=== PATIENT | female | born 1950 | race Caucasian/White ===

== ENCOUNTER 2019-02-24 08:08 | Emergency (ER) | payer MEDICARE, MEDICAID ==
[~2019-02-24] VITALS: Ht 170.2 cm; Wt 83.0 kg
[~2019-02-24 08:08] MED LIST: CARV3 PO; CHOL200059 PO; FAMO20 PO
[2019-02-24] MEDS ORDERED: ACETAMINOPHEN 500 MG TABLET PO ONE (08:30)
[2019-02-24] MEDS ORDERED: LIDOCAINE 5% TRANSDERMAL PATCH TD ONE (09:30)
[2019-02-24] MEDS ORDERED: IBUPROFEN 600 MG TABLET PO ONE (09:30)
[2019-02-24 09:45] LABS: GLUCOSE,POINT OF CARE 132 MG/DL (70-110)
[2019-02-24 10:13] VITALS: BP 123/63
== END 2019-02-24 10:35 | disposition home or self-care (01) ==
LOC: EMS 08:09
DX: M48.061 Spinal stenosis, lumbar region without neurogenic claudication (principal); I11.9 Hypertensive heart disease without heart failure; I25.10 Atherosclerotic heart disease of native coronary artery without angina pectoris; E11.9 Type 2 diabetes mellitus without complications; E78.00 Pure hypercholesterolemia, unspecified; I10 Essential (primary) hypertension; Z79.899 Other long term (current) drug therapy

== ENCOUNTER 2019-03-16 07:52 | Inpatient (IN) | payer MEDICARE, MEDICAID ==
[~2019-03-16] VITALS: Ht 157.5 cm; Wt 69.2 kg
[2019-03-16] MEDS ORDERED: FERR-89 PO (08:17)
[2019-03-16 09:29] LABS: BASOPHILS % (AUTO) 0.6 % (0.0-2.0); EOSINOPHILS % (AUTO) 0.4 % (1.0-6.0); HEMATOCRIT 28.3 % (36-46); HEMOGLOBIN 8.9 g/dL (12.0-16.0); LYMPHOCYTES # (AUTO) 1.1 K/uL (1.0-4.8); LYMPHOCYTES % (AUTO) 10.2 % (22.0-44.0); MEAN CORPUSCULAR HEMOGLOBIN 30.4 pg (26.0-34.0); MEAN CORPUSCULAR HGB CONC 31.4 G/dL (31.0-37.0); MEAN CORPUSCULAR VOLUME 97 fL (80-100); MONOCYTES % (AUTO) 9.8 % (2.0-9.0); NEUTROPHILS # (AUTO) 8.2 K/uL (1.8-7.7); PLATELET COUNT (AUTO) 357 K/uL (150-450); RED BLOOD CELL COUNT(AUTO) 2.93 MIL/uL (4.00-5.20); RED CELL DISTRIBUTION WIDTH 16.8 % (11.5-14.5)
[2019-03-16 09:43] LABS: ALBUMIN 2.8 g/dL (3.4-5.0); BILIRUBIN,TOTAL 0.4 mg/dL (0.1-1.0); CALCIUM, TOTAL 9.2 mg/dL (8.8-10.5); CREATININE 4.9 mg/dL (0.60-1.30); POTASSIUM 4.2 mmol/L (3.5-5.1)
[2019-03-16] MEDS ORDERED: SODIUM CHLORIDE 0.9% 1,000 ML IV ONE ×2 (10:15)
[2019-03-16 10:21] LABS: SOURCE, BLOOD GAS ARTERIAL; TEMPERATURE, FAHRENHEIT, BG 97.6 FAHREN (96.0-98.6)
[2019-03-16 10:24] LABS: ABG A-A DIFF O2 16.4 mmHg (10-20.0); ABG BASE EXCESS -21.6 mmol/L (-2.0-3.0); ABG CARBOXYHEMOGLOBIN 0.4 % (0.0-1.5); ABG METHEMOGLOBIN 0.2 % (0.0-1.5); ABG OXYGEN CONTENT 12.8 mL/dL (15.0-23.0); ABG OXYHEMOGLOBIN 96.4 % (94.0-100.0); ABG PCO2 21 mmHg (35-45); ABG TOTAL HEMOGLOBIN 9.3 G/dL (12.0-18.0); PO2, ARTERIAL BG 108.2 mmHg (79.0-87.0)
[2019-03-16 10:28] LABS: ABG PH 7.153 (7.35-7.450)
[2019-03-16 10:29] LABS: ABG HCO3 9.5 mmol/L (22.0-26.0)
[2019-03-16 10:30] LABS: SITE, BLOOD GAS RT RADIAL
[2019-03-16] MEDS ORDERED: HEPARIN SODIUM 25000 UNITS/D5W 250 ML IV PRN (10:32)
[2019-03-16 10:34] LABS: O2 DEVICE,BLOOD GAS ROOM AIR (ROOM AIR)
[2019-03-16] MEDS ORDERED: CefTRIAXone 1 GM/DEXTROSE 50 ML IV ONE (10:45)
[2019-03-16] MEDS ORDERED: HEPARIN SODIUM,PORCINE 5,000 UNITS/ML VIAL IVP ONE (10:45)
[2019-03-16] MEDS ORDERED: VANCOMYCIN HCL 1 GM/D5% WATER 200 ML IV ONE (10:45)
[2019-03-16] MEDS ORDERED: HEPARIN SODIUM,PORCINE 5,000 UNITS/ML VIAL IVP PRN ×4 (10:45→21:30)
[2019-03-16 11:03] LABS: PROTHROMBIN TIME 10.6 SEC (9.4-11.6)
[2019-03-16] MEDS ORDERED: LORazepam 2 MG/ML VIAL ONE (11:20)
[2019-03-16] MEDS ORDERED: LORazepam 2 MG/ML VIAL IVP ONE ×2 (11:30→11:45)
[2019-03-16] MEDS ORDERED: MIDAZOLAM HCL 2 MG/2 ML VIAL ONE (12:02)
[2019-03-16] MEDS ORDERED: SODIUM BICARBONATE [ADULT] 8.4% 50 MEQ/50 ML SYRINGE IVP ONE (12:30)
[2019-03-16] MEDS ORDERED: ONDANSETRON HCL 4 MG/2 ML VIAL IVP PRN ×2 (12:45→21:00)
[2019-03-16] MEDS ORDERED: ACETAMINOPHEN 325 MG TABLET PO PRN (12:45)
[2019-03-16] MEDS ORDERED: ASPIRIN 325 MG TABLET PO ONE (13:45)
[2019-03-16] MEDS ORDERED: SODIUM BICARBONATE 150 MEQ in DEXTROSE 5%-WATER 1,000 ML IV SCH (13:45)
[2019-03-16 15:32] LABS: CALCIUM, TOTAL 8.4 mg/dL (8.8-10.5); CREATININE 4.39 mg/dL (0.60-1.30); POTASSIUM 3.4 mmol/L (3.5-5.1)
[2019-03-16 15:38] LABS: ALBUMIN 2.2 g/dL (3.4-5.0); BILIRUBIN,TOTAL 0.3 mg/dL (0.1-1.0); TOTAL PROTEIN, SERUM 6.5 g/dL (6.4-8.2)
[2019-03-16] MEDS ORDERED: HEPARIN SODIUM,PORCINE 1,000 UNITS/ML VIAL IVP ONE (16:40)
[2019-03-16] MEDS ORDERED: ZOLPIDEM TARTRATE 5 MG TABLET PO PRN (21:00)
[2019-03-16] MEDS ORDERED: MAGNESIUM HYDROXIDE SUSPENSION 30 ML UDCUP PO PRN (21:00)
[2019-03-16] MEDS ORDERED: BISACODYL 10 MG RECTAL RECTAL SUPPOSITORY PR PRN (21:00)
[2019-03-16] MEDS: DOCUSATE SODIUM 100 MG CAPSULE PO SCH (21:00)
[2019-03-16] MEDS ORDERED: ALBUTEROL SULFATE 2.5 MG/0.5 ML NEB SOLUTION NEB PRN (21:00)
[2019-03-16] MEDS ORDERED: IPRATROPIUM BROMIDE 0.5 MG/2.5 ML NEB SOLUTION NEB PRN (21:00)
[2019-03-16 21:15] VITALS: BP 123/50
[2019-03-16] MEDS ORDERED: PNEUMOCOCCAL VACCINE POLYVALENT 0.5 ML VIAL [PPSV23] IM ONE (22:30)
[2019-03-16 22:45] LABS: ABG A-A DIFF O2 37.5 mmHg (10-20.0); ABG BASE EXCESS -8.7 mmol/L (-2.0-3.0); ABG CARBOXYHEMOGLOBIN 1.1 % (0.0-1.5); ABG METHEMOGLOBIN 0.2 % (0.0-1.5); ABG OXYGEN CONTENT 10.3 mL/dL (15.0-23.0); ABG OXYGEN SATURATION 95.9 % (95.0-98.0); ABG OXYHEMOGLOBIN 94.7 % (94.0-100.0); ABG PCO2 27 mmHg (35-45); ABG PH 7.401 (7.35-7.450); PO2, ARTERIAL BG 80.6 mmHg (79.0-87.0); SOURCE, BLOOD GAS ARTERIAL; TEMPERATURE, FAHRENHEIT, BG 97.7 FAHREN (96.0-98.6)
[2019-03-16 22:46] LABS: ABG TOTAL HEMOGLOBIN 7.6 G/dL (12.0-18.0); O2 DEVICE,BLOOD GAS ROOM AIR (ROOM AIR); SITE, BLOOD GAS RT RADIAL
[2019-03-16] MEDS: MORPHINE SULFATE 2 MG/ML SYRINGE IVP PRN (23:53)
[2019-03-17] VITALS (9 sets, daily range): BP systolic 92–126; BP diastolic 50–69
[2019-03-17] MEDS ORDERED: HEPARIN SODIUM,PORCINE 5,000 UNITS/ML VIAL SQ SCH
[2019-03-17 00:09] LABS: INR 1.1 (0.9-1.1); PROTHROMBIN TIME 11.2 SEC (9.4-11.6)
[2019-03-17] MEDS: HEPARIN SODIUM 25000 UNITS/D5W 250 ML IV PRN (05:22)
[2019-03-17 06:24] LABS: BASOPHILS % (AUTO) 0.7 % (0.0-2.0); EOSINOPHILS % (AUTO) 3.3 % (1.0-6.0); HEMATOCRIT 21.9 % (36-46); LYMPHOCYTES # (AUTO) 1.5 K/uL (1.0-4.8); MEAN CORPUSCULAR HEMOGLOBIN 30.2 pg (26.0-34.0); MEAN CORPUSCULAR HGB CONC 31.9 G/dL (31.0-37.0); MEAN CORPUSCULAR VOLUME 95 fL (80-100); MONOCYTES # (AUTO) 0.8 K/uL (0.1-1.0); MONOCYTES % (AUTO) 9.7 % (2.0-9.0); NEUTROPHILS # (AUTO) 5.4 K/uL (1.8-7.7); NEUTROPHILS % (AUTO) 67.3 % (40.0-70.0); PLATELET COUNT (AUTO) 236 K/uL (150-450); RED BLOOD CELL COUNT(AUTO) 2.32 MIL/uL (4.00-5.20); RED CELL DISTRIBUTION WIDTH 16.1 % (11.5-14.5)
[2019-03-17 07:08] LABS: ALBUMIN 2.1 g/dL (3.4-5.0); BILIRUBIN,TOTAL 0.4 mg/dL (0.1-1.0); CALCIUM, TOTAL 8.4 mg/dL (8.8-10.5); CREATININE 2.8 mg/dL (0.60-1.30); TOTAL PROTEIN, SERUM 6.3 g/dL (6.4-8.2)
[2019-03-17 07:11] LABS: POTASSIUM 2.8 mmol/L (3.5-5.1)
[2019-03-17] MEDS ORDERED: POTASSIUM CHL 10 MEQ/WATER 50 ML IV ONE ×2 (07:45→10:30)
[2019-03-17 08:07] LABS: APPEARANCE,URINE TURBID (CLEAR); BILIRUBIN,URINE NEGATIVE (NEGATIVE); GLUCOSE, URINE (UA) NEGATIVE (NEGATIVE); KETONES,URINE 15 mg/dL (NEGATIVE); LEUKOCYTE ESTERASE ,URINE LARGE (NEGATIVE); NITRATE,URINE NEGATIVE (NEGATIVE); OCCULT BLOOD,URINE LARGE (NEGATIVE); PH,URINE 8.5 (5.0-8.0); PROTEIN,URINE SEE CONFIRM (NEGATIVE); UROBILINOGEN,URINE 0.2 mg/dL (<=1.0)
[2019-03-17] MEDS ORDERED: SODIUM CHLORIDE 0.9% 500 ML IV ONE (08:16)
[2019-03-17 08:36] LABS: RBC,URINE Full Field /HPF (0-2); SULFOSALICYLIC ACID,URINE 4+ (Negative); WBC,URINE Full Field /HPF (0-5)
[2019-03-17 08:37] LABS: BACTERIA,URINE Many /HPF (None Seen)
[2019-03-17] MEDS: DOCUSATE SODIUM 100 MG CAPSULE PO SCH ×2 (09:00→20:08)
[2019-03-17] MEDS: FAMOTIDINE 20 MG TABLET PO SCH (09:00)
[2019-03-17] MEDS: CefTRIAXone 1 GM/DEXTROSE 50 ML IV SCH (11:57)
[2019-03-17] MEDS: ATORVASTATIN CALCIUM 10 MG TABLET PO SCH (13:15)
[2019-03-17] MEDS: ASPIRIN 81 MG EC TABLET PO SCH (13:15)
[2019-03-17] MEDS: MORPHINE SULFATE 2 MG/ML SYRINGE IVP PRN ×3 (13:17→20:21)
[2019-03-17] MEDS ORDERED: HEPARIN SODIUM,PORCINE 1,000 UNITS/ML VIAL IVP ONE (15:23)
[2019-03-17] MEDS: PHENAZOPYRIDINE HCL 100 MG TABLET PO SCH (20:08)
[2019-03-17] MEDS: CARVEDILOL 3.125 MG TABLET PO SCH (20:08)
[2019-03-17] MEDS ORDERED: SODIUM CHLORIDE 0.9% 250 ML IV ONE (22:28)
[2019-03-17] MEDS: HYDROCODONE/ACETAMINOPHEN 5-325 MG TABLET PO PRN (23:19)
[2019-03-18] VITALS (16 sets, daily range): BP systolic 84–126; BP diastolic 41–85
[2019-03-18] MEDS ORDERED: PHENYLEPHRINE 200 MG/D5%-WATER 250 ML IV PRN ×2 (01:08→01:10)
[2019-03-18] MEDS: HEPARIN SODIUM 25000 UNITS/D5W 250 ML IV PRN (03:14)
[2019-03-18 05:19] LABS: BASOPHILS % (AUTO) 0.9 % (0.0-2.0); EOSINOPHILS % (AUTO) 2.8 % (1.0-6.0); HEMATOCRIT 21.6 % (36-46); LYMPHOCYTES # (AUTO) 2.7 K/uL (1.0-4.8); MEAN CORPUSCULAR HEMOGLOBIN 30.2 pg (26.0-34.0); MEAN CORPUSCULAR HGB CONC 31.8 G/dL (31.0-37.0); MEAN CORPUSCULAR VOLUME 95 fL (80-100); MONOCYTES # (AUTO) 1.3 K/uL (0.1-1.0); MONOCYTES % (AUTO) 11.6 % (2.0-9.0); NEUTROPHILS # (AUTO) 6.5 K/uL (1.8-7.7); NEUTROPHILS % (AUTO) 59.7 % (40.0-70.0); PLATELET COUNT (AUTO) 259 K/uL (150-450); RED BLOOD CELL COUNT(AUTO) 2.27 MIL/uL (4.00-5.20); RED CELL DISTRIBUTION WIDTH 16.3 % (11.5-14.5)
[2019-03-18 05:27] LABS: % IRON SATURATION 8.1 % (22-44)
[2019-03-18 05:46] LABS: BILIRUBIN,TOTAL 0.3 mg/dL (0.1-1.0); CALCIUM, TOTAL 7.9 mg/dL (8.8-10.5); CREATININE 2.01 mg/dL (0.60-1.30); HEMOGLOBIN 6.9 g/dL (12.0-16.0); MAGNESIUM 1.5 mg/dL (1.80-2.40); POTASSIUM 3.4 mmol/L (3.5-5.1); TOTAL PROTEIN, SERUM 6.2 g/dL (6.4-8.2)
[2019-03-18] MEDS ORDERED: MAGNESIUM SULFATE 4 GM/WATER 100 ML IV ONE (08:30)
[2019-03-18] MEDS ORDERED: POTASSIUM CHLORIDE 10% 40 MEQ/30 ML LIQUID UDCUP PO ONE (08:30)
[2019-03-18] MEDS: CARVEDILOL 3.125 MG TABLET PO SCH ×2 (09:00→21:00)
[2019-03-18] MEDS: DOCUSATE SODIUM 100 MG CAPSULE PO SCH ×2 (09:17→19:58)
[2019-03-18] MEDS: ASPIRIN 81 MG EC TABLET PO SCH (09:17)
[2019-03-18] MEDS: FAMOTIDINE 20 MG TABLET PO SCH (09:19)
[2019-03-18] MEDS: ATORVASTATIN CALCIUM 10 MG TABLET PO SCH (09:29)
[2019-03-18] MEDS: PHENAZOPYRIDINE HCL 100 MG TABLET PO SCH ×3 (09:29→19:58)
[2019-03-18] MEDS: CefTRIAXone 1 GM/DEXTROSE 50 ML IV SCH (09:32)
[2019-03-18] MEDS ORDERED: SODIUM CHLORIDE 0.9% 250 ML IV ONE (11:12)
[2019-03-18] MEDS: MORPHINE SULFATE 2 MG/ML SYRINGE IVP PRN (19:58)
[2019-03-19] VITALS (7 sets, daily range): BP systolic 99–130; BP diastolic 16–70
[2019-03-19 05:27] LABS: CALCIUM, TOTAL 8.3 mg/dL (8.8-10.5); CREATININE 2.86 mg/dL (0.60-1.30); MAGNESIUM 2.8 mg/dL (1.80-2.40); POTASSIUM 3.4 mmol/L (3.5-5.1)
[2019-03-19] MEDS: ATORVASTATIN CALCIUM 10 MG TABLET PO SCH (08:08)
[2019-03-19] MEDS: PHENAZOPYRIDINE HCL 100 MG TABLET PO SCH ×2 (08:08→16:00)
[2019-03-19] MEDS: DOCUSATE SODIUM 100 MG CAPSULE PO SCH ×2 (08:08→21:00)
[2019-03-19] MEDS: ASPIRIN 81 MG EC TABLET PO SCH (08:08)
[2019-03-19] MEDS: FAMOTIDINE 20 MG TABLET PO SCH (08:08)
[2019-03-19 09:18] LABS: HEMATOCRIT 27.9 % (36-46); HEMOGLOBIN 8.9 g/dL (12.0-16.0)
[2019-03-19] MEDS ORDERED: HEPARIN SODIUM,PORCINE 1,000 UNITS/ML VIAL IVP ONE (12:00)
[2019-03-19] MEDS ORDERED: SODIUM CHLORIDE 0.9% 250 ML IV ONE (18:30)
[2019-03-19] MEDS: CefoTEtan DISOD 1 GM/DEXTROSE 50 ML IV SCH (19:01)
[2019-03-19] MEDS: CARVEDILOL 3.125 MG TABLET PO SCH (21:00)
[2019-03-20] VITALS (18 sets, daily range): BP systolic 78–179; BP diastolic 39–88
[2019-03-20] MEDS: CefoTEtan DISOD 1 GM/DEXTROSE 50 ML IV SCH ×2 (02:02→18:52)
[2019-03-20 06:32] LABS: CALCIUM, TOTAL 8.2 mg/dL (8.8-10.5); CREATININE 3.11 mg/dL (0.60-1.30); POTASSIUM 3.2 mmol/L (3.5-5.1)
[2019-03-20 06:38] LABS: BASOPHILS % (AUTO) 0.4 % (0.0-2.0); EOSINOPHILS % (AUTO) 3.4 % (1.0-6.0); HEMATOCRIT 28.5 % (36-46); HEMOGLOBIN 8.7 g/dL (12.0-16.0); LYMPHOCYTES # (AUTO) 1.7 K/uL (1.0-4.8); LYMPHOCYTES % (AUTO) 14.3 % (22.0-44.0); MEAN CORPUSCULAR HEMOGLOBIN 29.1 pg (26.0-34.0); MEAN CORPUSCULAR HGB CONC 30.5 G/dL (31.0-37.0); MEAN CORPUSCULAR VOLUME 95 fL (80-100); MONOCYTES # (AUTO) 1.1 K/uL (0.1-1.0); MONOCYTES % (AUTO) 8.8 % (2.0-9.0); NEUTROPHILS # (AUTO) 8.9 K/uL (1.8-7.7); NEUTROPHILS % (AUTO) 73.1 % (40.0-70.0); PLATELET COUNT (AUTO) 166 K/uL (150-450); RED BLOOD CELL COUNT(AUTO) 2.99 MIL/uL (4.00-5.20); RED CELL DISTRIBUTION WIDTH 16.6 % (11.5-14.5)
[2019-03-20 07:06] LABS: INR 1.1 (0.9-1.1)
[2019-03-20] MEDS ORDERED: HEPARIN SODIUM 1000 UNITS/NS 500 ML ONE ×2 (08:12→08:26)
[2019-03-20] MEDS ORDERED: LIDOCAINE 1%/EPI 1:200,000/PF 10 ML VIAL ONE (08:13)
[2019-03-20] MEDS ORDERED: HEPARIN SODIUM,PORCINE 100 UNITS/ML 5 ML VIAL IVP ONE ×2 (08:13→08:14)
[2019-03-20] MEDS ORDERED: HEPARIN SODIUM,PORCINE 1,000 UNITS/ML 10 ML VIAL ONE (08:14)
[2019-03-20] MEDS ORDERED: HEPARIN SODIUM 1000 UNITS/NS 1,000 ML ONE (08:35)
[2019-03-20] MEDS ORDERED: IOHEXOL 300 MG/ML 150 ML VIAL ONE (08:35)
[2019-03-20] MEDS ORDERED: SODIUM BICARBONATE 50 MEQ/50 ML VIAL ONE (08:35)
[2019-03-20] MEDS ORDERED: LIDOCAINE/PF 1% 30 ML VIAL ONE (08:35)
[2019-03-20] MEDS: ATORVASTATIN CALCIUM 10 MG TABLET PO SCH (09:00)
[2019-03-20] MEDS: CARVEDILOL 3.125 MG TABLET PO SCH ×2 (09:00→20:29)
[2019-03-20] MEDS: DOCUSATE SODIUM 100 MG CAPSULE PO SCH ×2 (09:00→20:29)
[2019-03-20] MEDS: ASPIRIN 81 MG EC TABLET PO SCH (09:00)
[2019-03-20] MEDS: FAMOTIDINE 20 MG TABLET PO SCH (09:00)
[2019-03-20] MEDS ORDERED: NITROGLYCERIN 50 MG/D5% WATER 0 ML ONE (10:39)
[2019-03-20] MEDS ORDERED: VERAPAMIL HCL 2.5 MG/ML 2 ML VIAL ONE (10:39)
[2019-03-20] MEDS ORDERED: HEPARIN SODIUM 1000 UNITS/NS 1,000 ML IARTER ONE (10:57)
[2019-03-20] MEDS ORDERED: IOHEXOL 300 MG/ML 150 ML VIAL IARTER ONE (11:00)
[2019-03-20] MEDS ORDERED: HEPARIN SODIUM,PORCINE 5,000 UNITS/ML VIAL IVP ONE (11:00)
[2019-03-20] MEDS ORDERED: LIDOCAINE 1% 30 ML/SOD BICARB 8.4% 4 ML SQ ONE (11:00)
[2019-03-20] MEDS ORDERED: IOHEXOL 300 MG/ML 50 ML VIAL ONE (11:11)
[2019-03-20] MEDS ORDERED: PHENYLEPHRINE HCL 10 MG/ML VIAL IVP ONE (12:00)
[2019-03-20] MEDS ORDERED: 0.9% SODIUM CHLORIDE 10 ML VIAL IVP ONE (12:00)
[2019-03-20] MEDS ORDERED: HEPARIN SODIUM,PORCINE 1,000 UNITS/ML VIAL IVP ONE ×2 (12:00)
[2019-03-20] MEDS ORDERED: SUCCINYLCHOLINE CHLORIDE 20 MG/ML 10 ML VIAL IVP ONE (12:00)
[2019-03-20] MEDS ORDERED: FentaNYL CITRATE-PF 100 MCG/2 ML VIAL IVP ONE (12:00)
[2019-03-20] MEDS ORDERED: LIDOCAINE/PF 2% 5 ML VIAL INJ ONE (12:00)
[2019-03-20] MEDS ORDERED: SODIUM CHLORIDE 0.9% 2,000 ML IV ONE (12:58)
[2019-03-20] MEDS: ACETAMINOPHEN 325 MG TABLET PO PRN (20:29)
[2019-03-21] VITALS (11 sets, daily range): BP systolic 63–116; BP diastolic 35–62
[2019-03-21] MEDS ORDERED: SODIUM CHLORIDE 0.9% 500 ML IV ONE ×5 (00:03→23:59)
[2019-03-21 06:50] LABS: BASOPHILS % (AUTO) 0.5 % (0.0-2.0); EOSINOPHILS % (AUTO) 1.9 % (1.0-6.0); HEMATOCRIT 26.1 % (36-46); HEMOGLOBIN 8.1 g/dL (12.0-16.0); LYMPHOCYTES % (AUTO) 11.4 % (22.0-44.0); MEAN CORPUSCULAR HEMOGLOBIN 29.7 pg (26.0-34.0); MEAN CORPUSCULAR HGB CONC 31.2 G/dL (31.0-37.0); MEAN CORPUSCULAR VOLUME 95 fL (80-100); MONOCYTES # (AUTO) 1.6 K/uL (0.1-1.0); MONOCYTES % (AUTO) 9.1 % (2.0-9.0); NEUTROPHILS # (AUTO) 13.4 K/uL (1.8-7.7); NEUTROPHILS % (AUTO) 77.1 % (40.0-70.0); PLATELET COUNT (AUTO) 167 K/uL (150-450); RED BLOOD CELL COUNT(AUTO) 2.74 MIL/uL (4.00-5.20); RED CELL DISTRIBUTION WIDTH 16.4 % (11.5-14.5)
[2019-03-21 06:59] LABS: ALBUMIN 1.9 g/dL (3.4-5.0); BILIRUBIN,TOTAL 0.3 mg/dL (0.1-1.0); CALCIUM, TOTAL 7.9 mg/dL (8.8-10.5); CREATININE 2.11 mg/dL (0.60-1.30); MAGNESIUM 1.8 mg/dL (1.80-2.40); POTASSIUM 3.7 mmol/L (3.5-5.1); TOTAL PROTEIN, SERUM 5.5 g/dL (6.4-8.2)
[2019-03-21] MEDS: DOCUSATE SODIUM 100 MG CAPSULE PO SCH ×2 (07:33→21:00)
[2019-03-21] MEDS: CARVEDILOL 3.125 MG TABLET PO SCH ×2 (07:33→21:00)
[2019-03-21] MEDS: CefoTEtan DISOD 1 GM/DEXTROSE 50 ML IV SCH ×2 (07:43→18:18)
[2019-03-21] MEDS: FAMOTIDINE 20 MG TABLET PO SCH (09:14)
[2019-03-21] MEDS: ASPIRIN 81 MG EC TABLET PO SCH (09:15)
[2019-03-21] MEDS: ATORVASTATIN CALCIUM 10 MG TABLET PO SCH (09:15)
[2019-03-21] MEDS: EPOETIN ALFA 10,000 UNITS/ML VIAL SQ SCH (09:16)
[2019-03-22 05:22] VITALS: BP 123/59
[2019-03-22] MEDS: CefoTEtan DISOD 1 GM/DEXTROSE 50 ML IV SCH ×2 (06:26→19:57)
[2019-03-22 08:04] VITALS: BP 122/64
[2019-03-22] MEDS: CARVEDILOL 3.125 MG TABLET PO SCH ×2 (09:00→21:00)
[2019-03-22] MEDS: DOCUSATE SODIUM 100 MG CAPSULE PO SCH ×2 (09:00→21:00)
[2019-03-22] MEDS: ASPIRIN 81 MG EC TABLET PO SCH (09:27)
[2019-03-22] MEDS: ATORVASTATIN CALCIUM 10 MG TABLET PO SCH (09:27)
[2019-03-22] MEDS: FAMOTIDINE 20 MG TABLET PO SCH (09:27)
[2019-03-22] MEDS ORDERED: SODIUM CHLORIDE 0.9% 2,000 ML IV ONE (09:40)
[2019-03-22 12:28] VITALS: BP 83/56
[2019-03-22] MEDS ORDERED: HEPARIN SODIUM,PORCINE 1,000 UNITS/ML VIAL IVP ONE (12:38)
[2019-03-22] MEDS: HYDROCODONE/ACETAMINOPHEN 5-325 MG TABLET PO PRN ×2 (12:45→22:21)
[2019-03-22 16:12] VITALS: BP 97/57
[2019-03-22 19:57] VITALS: BP 101/52
[2019-03-23] VITALS (7 sets, daily range): BP systolic 102–119; BP diastolic 48–66
[2019-03-23] MEDS: CefoTEtan DISOD 1 GM/DEXTROSE 50 ML IV SCH (06:20)
[2019-03-23 06:46] LABS: BASOPHILS % (AUTO) 0.6 % (0.0-2.0); EOSINOPHILS % (AUTO) 7.6 % (1.0-6.0); HEMATOCRIT 25.5 % (36-46); HEMOGLOBIN 7.9 g/dL (12.0-16.0); LYMPHOCYTES # (AUTO) 2.3 K/uL (1.0-4.8); LYMPHOCYTES % (AUTO) 24.5 % (22.0-44.0); MEAN CORPUSCULAR HEMOGLOBIN 29.9 pg (26.0-34.0); MEAN CORPUSCULAR HGB CONC 30.9 G/dL (31.0-37.0); MEAN CORPUSCULAR VOLUME 97 fL (80-100); MONOCYTES % (AUTO) 10.2 % (2.0-9.0); NEUTROPHILS # (AUTO) 5.4 K/uL (1.8-7.7); NEUTROPHILS % (AUTO) 57.1 % (40.0-70.0); PLATELET COUNT (AUTO) 135 K/uL (150-450); RED BLOOD CELL COUNT(AUTO) 2.63 MIL/uL (4.00-5.20); RED CELL DISTRIBUTION WIDTH 16.8 % (11.5-14.5)
[2019-03-23] MEDS: DOCUSATE SODIUM 100 MG CAPSULE PO SCH ×2 (07:57→21:00)
[2019-03-23] MEDS: CARVEDILOL 3.125 MG TABLET PO SCH ×2 (07:58→21:00)
[2019-03-23] MEDS: FAMOTIDINE 20 MG TABLET PO SCH (08:30)
[2019-03-23] MEDS: ASPIRIN 81 MG EC TABLET PO SCH (08:30)
[2019-03-23] MEDS: ATORVASTATIN CALCIUM 10 MG TABLET PO SCH (08:30)
[2019-03-23] MEDS: HYDROCODONE/ACETAMINOPHEN 5-325 MG TABLET PO PRN (15:52)
[2019-03-24 06:26] LABS: BASOPHILS % (AUTO) 0.8 % (0.0-2.0); EOSINOPHILS % (AUTO) 8.1 % (1.0-6.0); HEMATOCRIT 25.8 % (36-46); LYMPHOCYTES # (AUTO) 1.9 K/uL (1.0-4.8); LYMPHOCYTES % (AUTO) 22.4 % (22.0-44.0); MEAN CORPUSCULAR HEMOGLOBIN 29.9 pg (26.0-34.0); MEAN CORPUSCULAR HGB CONC 30.8 G/dL (31.0-37.0); MEAN CORPUSCULAR VOLUME 97 fL (80-100); MONOCYTES # (AUTO) 0.9 K/uL (0.1-1.0); MONOCYTES % (AUTO) 10.5 % (2.0-9.0); NEUTROPHILS % (AUTO) 58.2 % (40.0-70.0); PLATELET COUNT (AUTO) 164 K/uL (150-450); RED BLOOD CELL COUNT(AUTO) 2.66 MIL/uL (4.00-5.20); RED CELL DISTRIBUTION WIDTH 17.1 % (11.5-14.5)
[2019-03-24 06:35] LABS: CALCIUM, TOTAL 8.1 mg/dL (8.8-10.5); CREATININE 2.62 mg/dL (0.60-1.30); POTASSIUM 3.1 mmol/L (3.5-5.1)
[2019-03-24] MEDS: ASPIRIN 81 MG EC TABLET PO SCH (08:12)
[2019-03-24] MEDS: FAMOTIDINE 20 MG TABLET PO SCH (08:12)
[2019-03-24] MEDS: ATORVASTATIN CALCIUM 10 MG TABLET PO SCH (08:12)
[2019-03-24 08:13] VITALS: BP 101/59
[2019-03-24] MEDS: CARVEDILOL 3.125 MG TABLET PO SCH ×2 (08:15→20:09)
[2019-03-24] MEDS: DOCUSATE SODIUM 100 MG CAPSULE PO SCH ×2 (08:15→20:09)
[2019-03-24] MEDS: EPOETIN ALFA 10,000 UNITS/ML VIAL SQ SCH (08:15)
[2019-03-24] MEDS ORDERED: POTASSIUM CHLORIDE 10% 40 MEQ/30 ML LIQUID UDCUP PO ONE (10:15)
[2019-03-24] MEDS: HYDROCODONE/ACETAMINOPHEN 5-325 MG TABLET PO PRN ×2 (11:05→20:07)
[2019-03-24 11:52] VITALS: BP 105/44
[2019-03-24 15:29] VITALS: BP 94/47
[2019-03-24] MEDS: CefoTEtan DISOD 1 GM/DEXTROSE 50 ML IV SCH (16:03)
[2019-03-24 19:29] VITALS: BP 103/51
[2019-03-24 23:49] VITALS: BP 92/52
[2019-03-25 04:35] VITALS: BP 93/55
[2019-03-25 07:46] VITALS: BP 102/49
[2019-03-25 11:55] VITALS: BP 100/50
[2019-03-25] MEDS: ASPIRIN 81 MG EC TABLET PO SCH (12:37)
[2019-03-25] MEDS: DOCUSATE SODIUM 100 MG CAPSULE PO SCH ×3 (12:37→20:57)
[2019-03-25] MEDS: CARVEDILOL 3.125 MG TABLET PO SCH ×2 (12:37→20:55)
[2019-03-25] MEDS: ATORVASTATIN CALCIUM 10 MG TABLET PO SCH (12:37)
[2019-03-25] MEDS: VITAMIN B COMP/VIT C/FOLIC ACID CAPSULE PO SCH (12:39)
[2019-03-25] MEDS: FAMOTIDINE 20 MG TABLET PO SCH (12:40)
[2019-03-25] MEDS: CefoTEtan DISOD 1 GM/DEXTROSE 50 ML IV SCH (12:41)
[2019-03-25] MEDS ORDERED: SODIUM CHLORIDE 0.9% 100 ML ONE (17:49)
[2019-03-25] MEDS ORDERED: HEPARIN SODIUM,PORCINE 1,000 UNITS/ML VIAL ONE (17:51)
[2019-03-25 19:47] VITALS: BP 90/46
[2019-03-25] MEDS: ACETAMINOPHEN 325 MG TABLET PO PRN (20:55)
[2019-03-26 00:02] VITALS: BP 95/56
[2019-03-26 05:45] VITALS: BP 98/56
[2019-03-26 07:08] VITALS: BP 105/46
[2019-03-26 07:25] LABS: BASOPHILS % (AUTO) 0.5 % (0.0-2.0); EOSINOPHILS % (AUTO) 6.4 % (1.0-6.0); HEMATOCRIT 26.6 % (36-46); HEMOGLOBIN 8.3 g/dL (12.0-16.0); LYMPHOCYTES # (AUTO) 2.4 K/uL (1.0-4.8); LYMPHOCYTES % (AUTO) 23.5 % (22.0-44.0); MEAN CORPUSCULAR HEMOGLOBIN 30.1 pg (26.0-34.0); MEAN CORPUSCULAR HGB CONC 31.3 G/dL (31.0-37.0); MEAN CORPUSCULAR VOLUME 96 fL (80-100); MONOCYTES % (AUTO) 9.7 % (2.0-9.0); NEUTROPHILS # (AUTO) 6.1 K/uL (1.8-7.7); NEUTROPHILS % (AUTO) 59.9 % (40.0-70.0); PLATELET COUNT (AUTO) 210 K/uL (150-450); RED BLOOD CELL COUNT(AUTO) 2.77 MIL/uL (4.00-5.20); RED CELL DISTRIBUTION WIDTH 16.7 % (11.5-14.5)
[2019-03-26 08:03] LABS: ALBUMIN 1.9 g/dL (3.4-5.0); BILIRUBIN,TOTAL 0.2 mg/dL (0.1-1.0); CALCIUM, TOTAL 8.5 mg/dL (8.8-10.5); CREATININE 2.17 mg/dL (0.60-1.30); MAGNESIUM 1.6 mg/dL (1.80-2.40); POTASSIUM 3.2 mmol/L (3.5-5.1); TOTAL PROTEIN, SERUM 6.3 g/dL (6.4-8.2)
[2019-03-26] MEDS ORDERED: MAGNESIUM SULFATE 2 GM/WATER 50 ML IV ONE (08:45)
[2019-03-26] MEDS ORDERED: POTASSIUM CHLORIDE 10% 40 MEQ/30 ML LIQUID UDCUP PO ONE (08:45)
[2019-03-26] MEDS ORDERED: POTASSIUM CHLORIDE 20 MEQ ER TABLET PO ONE (08:45)
[2019-03-26] MEDS: DOCUSATE SODIUM 100 MG CAPSULE PO SCH ×2 (08:55→21:00)
[2019-03-26] MEDS: ATORVASTATIN CALCIUM 10 MG TABLET PO SCH (08:55)
[2019-03-26] MEDS: VITAMIN B COMP/VIT C/FOLIC ACID CAPSULE PO SCH (08:55)
[2019-03-26] MEDS: FAMOTIDINE 20 MG TABLET PO SCH (08:55)
[2019-03-26] MEDS: ASPIRIN 81 MG EC TABLET PO SCH (08:55)
[2019-03-26] MEDS: EPOETIN ALFA 10,000 UNITS/ML VIAL SQ SCH (08:56)
[2019-03-26] MEDS: CARVEDILOL 3.125 MG TABLET PO SCH ×2 (09:00→21:48)
[2019-03-26] MEDS ORDERED: SODIUM CHLORIDE 0.9% 100 ML ONE (09:40)
[2019-03-26] MEDS: CefoTEtan DISOD 1 GM/DEXTROSE 50 ML IV SCH (13:07)
[2019-03-26] MEDS ORDERED: HEPARIN SODIUM,PORCINE 1,000 UNITS/ML VIAL IVP ONE (13:09)
[2019-03-26] MEDS: HYDROCODONE/ACETAMINOPHEN 5-325 MG TABLET PO PRN ×2 (13:42→21:52)
[2019-03-26] MEDS ORDERED: ATOR10TA84 PO (14:33)
[2019-03-26] MEDS ORDERED: ASPI-1182 PO (14:33)
[2019-03-26] MEDS ORDERED: DSS100 PO (14:33)
[2019-03-26] MEDS ORDERED: EPOE10003 SQ (14:34)
[2019-03-26 15:15] VITALS: BP 95/54
[2019-03-26 19:44] VITALS: BP 101/60
[2019-03-26 23:58] VITALS: BP 121/50
[2019-03-27 04:33] VITALS: BP 103/51
[2019-03-27 08:06] VITALS: BP 97/41
[2019-03-27] MEDS: CARVEDILOL 3.125 MG TABLET PO SCH (09:00)
[2019-03-27] MEDS: DOCUSATE SODIUM 100 MG CAPSULE PO SCH (09:00)
[2019-03-27] MEDS: ASPIRIN 81 MG EC TABLET PO SCH (09:00)
[2019-03-27] MEDS: ATORVASTATIN CALCIUM 10 MG TABLET PO SCH (09:00)
[2019-03-27] MEDS: FAMOTIDINE 20 MG TABLET PO SCH (09:00)
[2019-03-27] MEDS: VITAMIN B COMP/VIT C/FOLIC ACID CAPSULE PO SCH (09:00)
[2019-03-27 10:55] VITALS: BP 98/57
== END 2019-03-27 13:10 | DRG 871 ==
LOC: EMS 07:56 → ICU 17:47 → 5S 03-19 14:25
PROVIDERS: ADMIT Hospitalist; ATTEND Hospitalist
PROC: B54BZZA Ultrasonography of Right Lower Extremity Veins, Guidance (ICD-10-PCS; 2019-03-16)
PROC: 06HY33Z Insertion of Infusion Device into Lower Vein, Percutaneous Approach (ICD-10-PCS; 2019-03-16)
PROC: 5A1D70Z Performance of Urinary Filtration, Intermittent, Less than 6 Hours Per Day (ICD-10-PCS; 2019-03-16)
PROC: 5A1935Z Respiratory Ventilation, Less than 24 Consecutive Hours (ICD-10-PCS; principal; 2019-03-17)
PROC: 0BH17EZ Insertion of Endotracheal Airway into Trachea, Via Natural or Artificial Opening (ICD-10-PCS; 2019-03-17)
PROC: 5A1D70Z Performance of Urinary Filtration, Intermittent, Less than 6 Hours Per Day (ICD-10-PCS; 2019-03-17)
PROC: 30233N1 Transfusion of Nonautologous Red Blood Cells into Peripheral Vein, Percutaneous Approach (ICD-10-PCS; 2019-03-18)
PROC: 5A1D70Z Performance of Urinary Filtration, Intermittent, Less than 6 Hours Per Day (ICD-10-PCS; 2019-03-19)
PROC: 4A023N7 Measurement of Cardiac Sampling and Pressure, Left Heart, Percutaneous Approach (ICD-10-PCS; 2019-03-20)
PROC: B2111ZZ Fluoroscopy of Multiple Coronary Arteries using Low Osmolar Contrast (ICD-10-PCS; 2019-03-20)
PROC: B2151ZZ Fluoroscopy of Left Heart using Low Osmolar Contrast (ICD-10-PCS; 2019-03-20)
PROC: 0JH63XZ Insertion of Tunneled Vascular Access Device into Chest Subcutaneous Tissue and Fascia, Percutaneous Approach (ICD-10-PCS; 2019-03-20)
PROC: 02HV33Z Insertion of Infusion Device into Superior Vena Cava, Percutaneous Approach (ICD-10-PCS; 2019-03-20)
PROC: B5181ZA Fluoroscopy of Superior Vena Cava using Low Osmolar Contrast, Guidance (ICD-10-PCS; 2019-03-20)
PROC: B548ZZA Ultrasonography of Superior Vena Cava, Guidance (ICD-10-PCS; 2019-03-20)
PROC: 5A1D70Z Performance of Urinary Filtration, Intermittent, Less than 6 Hours Per Day (ICD-10-PCS; 2019-03-20)
PROC: 5A1D70Z Performance of Urinary Filtration, Intermittent, Less than 6 Hours Per Day (ICD-10-PCS; 2019-03-22)
DX: A41.9 Sepsis, unspecified organism (principal); I21.4 Non-ST elevation (NSTEMI) myocardial infarction; G93.41 Metabolic encephalopathy; E43 Unspecified severe protein-calorie malnutrition; N18.6 End stage renal disease; N17.9 Acute kidney failure, unspecified; N39.0 Urinary tract infection, site not specified; E87.2 Acidosis; I50.22 Chronic systolic (congestive) heart failure; I13.2 Hypertensive heart and chronic kidney disease with heart failure and with stage 5 chronic kidney disease, or end stage renal disease; E78.5 Hyperlipidemia, unspecified; B96.20 Unspecified Escherichia coli [E. coli] as the cause of diseases classified elsewhere; E11.22 Type 2 diabetes mellitus with diabetic chronic kidney disease; E78.00 Pure hypercholesterolemia, unspecified; E66.9 Obesity, unspecified; E86.0 Dehydration; E87.6 Hypokalemia; I25.10 Atherosclerotic heart disease of native coronary artery without angina pectoris; I25.5 Ischemic cardiomyopathy; D64.9 Anemia, unspecified; I49.5 Sick sinus syndrome; M19.90 Unspecified osteoarthritis, unspecified site; I27.20 Pulmonary hypertension, unspecified; K21.9 Gastro-esophageal reflux disease without esophagitis; K43.9 Ventral hernia without obstruction or gangrene; N13.9 Obstructive and reflux uropathy, unspecified; Z16.12 Extended spectrum beta lactamase (ESBL) resistance; R62.7 Adult failure to thrive; Z68.27 Body mass index [BMI] 27.0-27.9, adult; I25.2 Old myocardial infarction; Z95.5 Presence of coronary angioplasty implant and graft; Z74.01 Bed confinement status; Z87.440 Personal history of urinary (tract) infections; Z87.891 Personal history of nicotine dependence; Z91.19 Patient's noncompliance with other medical treatment and regimen; Z95.810 Presence of automatic (implantable) cardiac defibrillator
CPT/HCPCS: 36245; 36561; 36600; 76000; 76770; 76937; 82728; 82805; 83540; 83550; 83605; 83735; 84132; 85014; 85018; 86850; 86900; 86901; 86920; 87040; 87081; 87086; 87340; 93005; 93306; 93970; 97110; 97116; 97162; 97530; 99291; G0378; J0330; J0690; J0696; J0885; J1642; J1644; J2060; J2250; J2270; J2370; J3010; J3370; J3475; J3480; J3490; J7030; J7040; J7050; J7060; P9016; Q9967

== ENCOUNTER 2019-06-29 17:59 | Inpatient (IN) | payer MEDICARE, MEDICAID ==
[~2019-06-29] VITALS: Ht 157.5 cm; Wt 65.9 kg
[~2019-06-29 17:59] MED LIST changes: +ASPI-1182 PO; +ATOR10TA84 PO; +DSS100 PO; +EPOE10003 SQ; +FERR-89 PO; +MIDODRINE HCL 5 MG TABLET PO ONE
[2019-06-29] MEDS ORDERED: FOLI0.8T22 PO (18:07)
[2019-06-29] MEDS ORDERED: MECL-111 PO (18:07)
[2019-06-29] MEDS ORDERED: GABA-529 PO (18:07)
[2019-06-29] MEDS ORDERED: MIDO5TAB29 PO (18:07)
[2019-06-29 19:00] LABS: BASOPHILS % (AUTO) 0.3 % (0.0-2.0); EOSINOPHILS % (AUTO) 0.1 % (1.0-6.0); HEMATOCRIT 35.1 % (36-46); HEMOGLOBIN 11.2 g/dL (12.0-16.0); LYMPHOCYTES # (AUTO) 1.5 K/uL (1.0-4.8); LYMPHOCYTES % (AUTO) 19.6 % (22.0-44.0); MEAN CORPUSCULAR HEMOGLOBIN 29.9 pg (26.0-34.0); MEAN CORPUSCULAR HGB CONC 31.9 G/dL (31.0-37.0); MEAN CORPUSCULAR VOLUME 94 fL (80-100); MONOCYTES # (AUTO) 0.8 K/uL (0.1-1.0); MONOCYTES % (AUTO) 10.4 % (2.0-9.0); NEUTROPHILS # (AUTO) 5.2 K/uL (1.8-7.7); NEUTROPHILS % (AUTO) 69.6 % (40.0-70.0); PLATELET COUNT (AUTO) 170 K/uL (150-450); RED BLOOD CELL COUNT(AUTO) 3.74 MIL/uL (4.00-5.20); RED CELL DISTRIBUTION WIDTH 18.6 % (11.5-14.5)
[2019-06-29 19:19] LABS: CALCIUM, TOTAL 8.2 mg/dL (8.8-10.5); CREATININE 9.5 mg/dL (0.60-1.30); POTASSIUM 5.2 mmol/L (3.5-5.1)
[2019-06-29 19:27] LABS: LACTIC ACID 0.8 mmol/L (0.4-2.0)
[2019-06-29 19:33] LABS: ALBUMIN 2.5 g/dL (3.4-5.0); BILIRUBIN,TOTAL 0.5 mg/dL (0.1-1.0); FREE T4 (FREE THYROXINE) 1.27 ng/dL (0.76-1.46); THYROID STIMULATING HORMONE 1.87 uIU/mL (0.36-3.74); TOTAL PROTEIN, SERUM 8.1 g/dL (6.4-8.2)
[2019-06-29 19:54] LABS: GLUCOSE,POINT OF CARE 76 MG/DL (70-110)
[2019-06-29 20:03] LABS: INFLUENZA TYPE A POSITIVE FOR TYPE A (NEGATIVE); INFLUENZA TYPE B NEGATIVE FOR TYPE B (NEGATIVE)
[2019-06-29] MEDS ORDERED: SODIUM BICARBONATE [ADULT] 8.4% 50 MEQ/50 ML SYRINGE IVP ONE (20:15)
[2019-06-29] MEDS ORDERED: CARV6 PO (20:24)
[2019-06-29] MEDS ORDERED: CefTRIAXone 1 GM/DEXTROSE 50 ML IV ONE (21:00)
[2019-06-29] MEDS ORDERED: DOXYCYCLINE HYCLATE 100 MG CAPSULE PO ONE (21:15)
[2019-06-29] MEDS ORDERED: OSELTAMIVIR PHOSPHATE 30 MG CAPSULE PO ONE (21:45)
[2019-06-29] MEDS ORDERED: ACETAMINOPHEN 325 MG TABLET PO PRN (22:30)
[2019-06-29] MEDS ORDERED: ONDANSETRON HCL 4 MG/2 ML VIAL IVP PRN ×2 (22:30→23:15)
[2019-06-29] MEDS ORDERED: 0.9% SODIUM CHLORIDE 10 ML SYRINGE IVP PRN ×2 (22:30→23:15)
[2019-06-29 22:36] LABS: APPEARANCE,URINE TURBID (CLEAR); GLUCOSE, URINE (UA) NEGATIVE (NEGATIVE); KETONES,URINE 15 mg/dL (NEGATIVE); LEUKOCYTE ESTERASE ,URINE LARGE (NEGATIVE); NITRATE,URINE NEGATIVE (NEGATIVE); OCCULT BLOOD,URINE LARGE (NEGATIVE); PROTEIN,URINE SEE CONFIRM (NEGATIVE)
[2019-06-29 22:38] LABS: BILIRUBIN,URINE PRELIM. POSITIVE (NEGATIVE)
[2019-06-29 23:01] LABS: BACTERIA,URINE Many /HPF (None Seen); RBC,URINE 51-100 /HPF (0-2); WBC,URINE >100 /HPF (0-5)
[2019-06-29 23:02] LABS: SQUAMOUS EPITHELIAL CELL,UR Few /LPF (None Seen); SULFOSALICYLIC ACID,URINE 4+ (Negative)
[2019-06-29] MEDS ORDERED: ALBUTEROL SULFATE 2.5 MG/0.5 ML NEB SOLUTION NEB PRN (23:15)
[2019-06-29] MEDS ORDERED: IPRATROPIUM BROMIDE 0.5 MG/2.5 ML NEB SOLUTION NEB PRN (23:15)
[2019-06-29] MEDS ORDERED: ZOLPIDEM TARTRATE 5 MG TABLET PO PRN (23:15)
[2019-06-29] MEDS ORDERED: CARVEDILOL 3.125 MG TABLET PO ONE (23:30)
[2019-06-29] MEDS ORDERED: GABAPENTIN 100 MG CAPSULE PO ONE (23:30)
[2019-06-30] MEDS: ALBUTEROL SULFATE 2.5 MG/0.5 ML NEB SOLUTION NEB SCH ×4 (02:37→20:45)
[2019-06-30] MEDS: IPRATROPIUM BROMIDE 0.5 MG/2.5 ML NEB SOLUTION NEB SCH ×4 (02:38→20:45)
[2019-06-30] MEDS: GABAPENTIN 100 MG CAPSULE PO SCH ×2 (07:53→21:59)
[2019-06-30] MEDS: PANTOPRAZOLE SODIUM 40 MG DR TABLET PO SCH (07:53)
[2019-06-30] MEDS ORDERED: ALBUMIN HUMAN 25%-25GM/100ML 100 ML IV ONE ×2 (08:00→16:00)
[2019-06-30 08:04] LABS: BASOPHILS % (AUTO) 0.4 % (0.0-2.0); EOSINOPHILS % (AUTO) 0.2 % (1.0-6.0); HEMATOCRIT 32.9 % (36-46); HEMOGLOBIN 10.5 g/dL (12.0-16.0); LYMPHOCYTES # (AUTO) 2.1 K/uL (1.0-4.8); LYMPHOCYTES % (AUTO) 35.4 % (22.0-44.0); MEAN CORPUSCULAR HEMOGLOBIN 29.9 pg (26.0-34.0); MEAN CORPUSCULAR HGB CONC 31.8 G/dL (31.0-37.0); MEAN CORPUSCULAR VOLUME 94 fL (80-100); MONOCYTES # (AUTO) 0.7 K/uL (0.1-1.0); MONOCYTES % (AUTO) 11.7 % (2.0-9.0); NEUTROPHILS # (AUTO) 3.1 K/uL (1.8-7.7); NEUTROPHILS % (AUTO) 52.3 % (40.0-70.0); PLATELET COUNT (AUTO) 154 K/uL (150-450); RED CELL DISTRIBUTION WIDTH 18.9 % (11.5-14.5)
[2019-06-30 08:14] LABS: CALCIUM, TOTAL 8.2 mg/dL (8.8-10.5); CREATININE 9.44 mg/dL (0.60-1.30); MAGNESIUM 2.4 mg/dL (1.80-2.40); POTASSIUM 4.9 mmol/L (3.5-5.1)
[2019-06-30] MEDS ORDERED: MECLIZINE HCL 25 MG TABLET PO SCH (09:00)
[2019-06-30] MEDS: -POST HEMODIALYSIS NOTE- MISC SCH (09:00)
[2019-06-30] MEDS ORDERED: MIDODRINE HCL 5 MG TABLET PO SCH ×3 (09:00→16:00)
[2019-06-30] MEDS ORDERED: CARVEDILOL 6.25 MG TABLET PO SCH (09:00)
[2019-06-30] MEDS: ASPIRIN 81 MG EC TABLET PO SCH (09:31)
[2019-06-30] MEDS: VITAMIN B COMP/VIT C/FOLIC ACID CAPSULE PO SCH (09:31)
[2019-06-30] MEDS ORDERED: SODIUM CHLORIDE 0.9% 250 ML IV ONE ×2 (09:51→21:15)
[2019-06-30] MEDS: DOXYCYCLINE HYCLATE 100 MG in DEXTROSE 5%-WATER 100 ML IV SCH ×2 (12:13→23:54)
[2019-06-30] MEDS: MIDODRINE HCL 5 MG TABLET PO SCH ×2 (16:25→21:09)
[2019-06-30] MEDS ORDERED: DOXYCYCLINE HYCLATE 100 MG TABLET PO SCH (20:00)
[2019-06-30 20:20] LABS: GLUCOSE,POINT OF CARE 69 MG/DL (70-110)
[2019-06-30 20:30] VITALS: BP 77/46
[2019-06-30] MEDS ORDERED: CefTRIAXone 1 GM/DEXTROSE 50 ML IV SCH (21:00)
[2019-06-30] MEDS ORDERED: CefoTEtan DISOD 1 GM/DEXTROSE 50 ML IV ONE (22:30)
[2019-06-30] MEDS ORDERED: VANCOMYCIN HCL 1 GM/D5% WATER 200 ML IV PRN (22:45)
[2019-06-30] MEDS ORDERED: VANCOMYCIN HCL 1.5 GM in DEXTROSE 5%-WATER 250 ML IV ONE (23:00)
[2019-06-30] MEDS ORDERED: *CLINICAL-RX DOSING [ENTER DRUG IN COMMENTS] CLINICAL ONE (23:15)
[2019-06-30] MEDS ORDERED: CefoTEtan DISODIUM 0.5 GM in DEXTROSE 5%-WATER 50 ML IV PRN (23:30)
[2019-07-01] VITALS (8 sets, daily range): BP systolic 78–121; BP diastolic 43–62
[2019-07-01] MEDS: ACETAMINOPHEN 325 MG TABLET PO PRN (00:02)
[2019-07-01] MEDS ORDERED: NOREPINEPHRINE 4 MG/D5%-WATER 250 ML IV PRN (01:14)
[2019-07-01] MEDS: ALBUTEROL SULFATE 2.5 MG/0.5 ML NEB SOLUTION NEB SCH ×4 (02:06→20:00)
[2019-07-01] MEDS: IPRATROPIUM BROMIDE 0.5 MG/2.5 ML NEB SOLUTION NEB SCH ×4 (02:06→20:00)
[2019-07-01] MEDS ORDERED: PNEUMOCOCCAL VACCINE POLYVALENT 0.5 ML VIAL [PPSV23] IM ONE (04:00)
[2019-07-01] MEDS ORDERED: INFLUENZA VIRUS VACCINE QVS 2019-20 (3YR+)/PF 60 MCG/0.5 ML SYRINGE IM ONE (04:00)
[2019-07-01 05:11] LABS: BASOPHILS % (AUTO) 0.3 % (0.0-2.0); EOSINOPHILS % (AUTO) 0.5 % (1.0-6.0); HEMATOCRIT 31.5 % (36-46); HEMOGLOBIN 10.1 g/dL (12.0-16.0); LYMPHOCYTES # (AUTO) 3.3 K/uL (1.0-4.8); MEAN CORPUSCULAR HGB CONC 32.1 G/dL (31.0-37.0); MEAN CORPUSCULAR VOLUME 94 fL (80-100); MONOCYTES # (AUTO) 1.2 K/uL (0.1-1.0); MONOCYTES % (AUTO) 13.5 % (2.0-9.0); NEUTROPHILS # (AUTO) 4.2 K/uL (1.8-7.7); NEUTROPHILS % (AUTO) 47.7 % (40.0-70.0); PLATELET COUNT (AUTO) 211 K/uL (150-450); RED BLOOD CELL COUNT(AUTO) 3.36 MIL/uL (4.00-5.20); RED CELL DISTRIBUTION WIDTH 18.9 % (11.5-14.5)
[2019-07-01 05:27] LABS: ALBUMIN 2.7 g/dL (3.4-5.0); BILIRUBIN,TOTAL 0.4 mg/dL (0.1-1.0); CALCIUM, TOTAL 7.4 mg/dL (8.8-10.5); CREATININE 10.05 mg/dL (0.60-1.30); POTASSIUM 4.6 mmol/L (3.5-5.1); TOTAL PROTEIN, SERUM 7.4 g/dL (6.4-8.2)
[2019-07-01 07:06] LABS: GLUCOSE,POINT OF CARE 112 MG/DL (70-110)
[2019-07-01] MEDS ORDERED: *CLINICAL-RENAL DOSING MEDICATIONS CLINICAL ONE (07:30)
[2019-07-01] MEDS ORDERED: MEROPENEM 500 MG in SODIUM CHLORIDE 0.9% 50 ML IV PRN ×4 (07:45)
[2019-07-01] MEDS: ASPIRIN 81 MG EC TABLET PO SCH (08:48)
[2019-07-01] MEDS: MIDODRINE HCL 5 MG TABLET PO SCH ×3 (08:49→22:14)
[2019-07-01] MEDS: VITAMIN B COMP/VIT C/FOLIC ACID CAPSULE PO SCH (08:49)
[2019-07-01] MEDS: PANTOPRAZOLE SODIUM 40 MG DR TABLET PO SCH (08:49)
[2019-07-01] MEDS: GABAPENTIN 100 MG CAPSULE PO SCH ×2 (08:49→22:14)
[2019-07-01] MEDS: MEROPENEM 500 MG in SODIUM CHLORIDE 0.9% 50 ML IV SCH (08:52)
[2019-07-01] MEDS: MECLIZINE HCL 25 MG TABLET PO PRN (08:55)
[2019-07-01] MEDS ORDERED: CefoTEtan DISODIUM 0.5 GM in DEXTROSE 5%-WATER 50 ML IV SCH (09:00)
[2019-07-01] MEDS ORDERED: -POST HEMODIALYSIS NOTE- MISC SCH ×2 (09:00)
[2019-07-01] MEDS: OSELTAMIVIR PHOSPHATE 30 MG CAPSULE PO PRN (12:19)
[2019-07-01] MEDS: DOXYCYCLINE HYCLATE 100 MG in DEXTROSE 5%-WATER 100 ML IV SCH (13:26)
[2019-07-01] MEDS ORDERED: HEPARIN SODIUM,PORCINE 1,000 UNITS/ML VIAL IVP ONE (17:52)
[2019-07-02] VITALS (7 sets, daily range): BP systolic 96–116; BP diastolic 49–66
[2019-07-02] MEDS: IPRATROPIUM BROMIDE 0.5 MG/2.5 ML NEB SOLUTION NEB SCH ×4 (02:35→19:58)
[2019-07-02] MEDS: ALBUTEROL SULFATE 2.5 MG/0.5 ML NEB SOLUTION NEB SCH ×4 (02:36→19:58)
[2019-07-02] MEDS: VITAMIN B COMP/VIT C/FOLIC ACID CAPSULE PO SCH (08:35)
[2019-07-02] MEDS: MEROPENEM 500 MG in SODIUM CHLORIDE 0.9% 50 ML IV SCH (08:35)
[2019-07-02] MEDS: PANTOPRAZOLE SODIUM 40 MG DR TABLET PO SCH (08:35)
[2019-07-02] MEDS: -POST HEMODIALYSIS NOTE- MISC SCH (08:35)
[2019-07-02] MEDS: GABAPENTIN 100 MG CAPSULE PO SCH ×2 (08:35→20:00)
[2019-07-02] MEDS: MIDODRINE HCL 5 MG TABLET PO SCH ×3 (08:36→21:53)
[2019-07-02] MEDS: ASPIRIN 81 MG EC TABLET PO SCH (08:36)
[2019-07-02] MEDS: EPOETIN ALFA 10,000 UNITS/ML VIAL SQ SCH (10:22)
[2019-07-02] MEDS: MECLIZINE HCL 25 MG TABLET PO PRN (20:01)
[2019-07-03] MEDS: IPRATROPIUM BROMIDE 0.5 MG/2.5 ML NEB SOLUTION NEB SCH ×4 (02:00→20:56)
[2019-07-03] MEDS: ALBUTEROL SULFATE 2.5 MG/0.5 ML NEB SOLUTION NEB SCH ×4 (02:00→20:56)
[2019-07-03 05:10] VITALS: BP 125/66
[2019-07-03 06:24] LABS: BASOPHILS % (AUTO) 0.5 % (0.0-2.0); EOSINOPHILS % (AUTO) 1.5 % (1.0-6.0); HEMATOCRIT 32.4 % (36-46); HEMOGLOBIN 10.5 g/dL (12.0-16.0); LYMPHOCYTES # (AUTO) 3.2 K/uL (1.0-4.8); LYMPHOCYTES % (AUTO) 33.1 % (22.0-44.0); MEAN CORPUSCULAR HEMOGLOBIN 30.5 pg (26.0-34.0); MEAN CORPUSCULAR HGB CONC 32.5 G/dL (31.0-37.0); MEAN CORPUSCULAR VOLUME 94 fL (80-100); MONOCYTES # (AUTO) 1.7 K/uL (0.1-1.0); NEUTROPHILS # (AUTO) 4.7 K/uL (1.8-7.7); NEUTROPHILS % (AUTO) 47.9 % (40.0-70.0); PLATELET COUNT (AUTO) 278 K/uL (150-450); RED BLOOD CELL COUNT(AUTO) 3.45 MIL/uL (4.00-5.20); RED CELL DISTRIBUTION WIDTH 18.2 % (11.5-14.5)
[2019-07-03 06:42] LABS: CALCIUM, TOTAL 8.8 mg/dL (8.8-10.5); CREATININE 7.96 mg/dL (0.60-1.30); MAGNESIUM 1.8 mg/dL (1.80-2.40); PHOSPHORUS 6.1 mg/dL (2.5-4.9); POTASSIUM 4.2 mmol/L (3.5-5.1); VANCOMYCIN,RANDOM 17.1 mcg/mL (25.0-50.0)
[2019-07-03 07:25] VITALS: BP 122/62
[2019-07-03] MEDS ORDERED: SODIUM CHLORIDE 0.9% 2,000 ML ONE (08:44)
[2019-07-03] MEDS: GABAPENTIN 100 MG CAPSULE PO SCH ×2 (09:00→20:18)
[2019-07-03] MEDS: MIDODRINE HCL 5 MG TABLET PO SCH ×3 (09:00→20:18)
[2019-07-03] MEDS: VITAMIN B COMP/VIT C/FOLIC ACID CAPSULE PO SCH (09:00)
[2019-07-03] MEDS ORDERED: CeFAZolin 2 GM/DEXTROSE 50 ML IV SCH (09:00)
[2019-07-03] MEDS: ASPIRIN 81 MG EC TABLET PO SCH (09:00)
[2019-07-03] MEDS: PANTOPRAZOLE SODIUM 40 MG DR TABLET PO SCH (09:00)
[2019-07-03] MEDS: AMOX TR/POT CLAV 500 MG/125 MG TABLET PO SCH (15:40)
[2019-07-03] MEDS: OSELTAMIVIR PHOSPHATE 30 MG CAPSULE PO PRN (15:40)
[2019-07-03] MEDS: -POST HEMODIALYSIS NOTE- MISC SCH (15:40)
[2019-07-03] MEDS: MECLIZINE HCL 12.5 MG TABLET PO SCH ×2 (15:40→20:19)
[2019-07-03 15:53] VITALS: BP 112/72
[2019-07-03 19:47] VITALS: BP 109/62
[2019-07-04 00:08] VITALS: BP 106/60
[2019-07-04] MEDS: IPRATROPIUM BROMIDE 0.5 MG/2.5 ML NEB SOLUTION NEB SCH ×3 (01:59→14:35)
[2019-07-04] MEDS: ALBUTEROL SULFATE 2.5 MG/0.5 ML NEB SOLUTION NEB SCH ×3 (02:00→14:35)
[2019-07-04 04:31] VITALS: BP 110/64
[2019-07-04 07:07] LABS: CALCIUM, TOTAL 9.8 mg/dL (8.8-10.5); CREATININE 5.3 mg/dL (0.60-1.30); POTASSIUM 4.2 mmol/L (3.5-5.1)
[2019-07-04 07:08] LABS: BASOPHILS % (AUTO) 0.4 % (0.0-2.0); EOSINOPHILS % (AUTO) 1.6 % (1.0-6.0); HEMATOCRIT 35.3 % (36-46); HEMOGLOBIN 11.2 g/dL (12.0-16.0); LYMPHOCYTES # (AUTO) 2.9 K/uL (1.0-4.8); LYMPHOCYTES % (AUTO) 28.2 % (22.0-44.0); MEAN CORPUSCULAR HEMOGLOBIN 30.1 pg (26.0-34.0); MEAN CORPUSCULAR HGB CONC 31.8 G/dL (31.0-37.0); MEAN CORPUSCULAR VOLUME 95 fL (80-100); MONOCYTES % (AUTO) 19.5 % (2.0-9.0); NEUTROPHILS # (AUTO) 5.2 K/uL (1.8-7.7); NEUTROPHILS % (AUTO) 50.3 % (40.0-70.0); PLATELET COUNT (AUTO) 284 K/uL (150-450); RED BLOOD CELL COUNT(AUTO) 3.73 MIL/uL (4.00-5.20); RED CELL DISTRIBUTION WIDTH 18.4 % (11.5-14.5)
[2019-07-04] MEDS ORDERED: COSYNTROPIN 0.25 MG VIAL IVP ONE (08:00)
[2019-07-04 08:05] VITALS: BP 112/61
[2019-07-04] MEDS: EPOETIN ALFA 10,000 UNITS/ML VIAL SQ SCH (08:16)
[2019-07-04] MEDS: AMOX TR/POT CLAV 500 MG/125 MG TABLET PO SCH (08:17)
[2019-07-04] MEDS: VITAMIN B COMP/VIT C/FOLIC ACID CAPSULE PO SCH (08:17)
[2019-07-04] MEDS: MIDODRINE HCL 5 MG TABLET PO SCH ×2 (08:17→15:51)
[2019-07-04] MEDS: MECLIZINE HCL 12.5 MG TABLET PO SCH ×2 (08:17→15:50)
[2019-07-04] MEDS: GABAPENTIN 100 MG CAPSULE PO SCH (08:17)
[2019-07-04] MEDS: PANTOPRAZOLE SODIUM 40 MG DR TABLET PO SCH (08:17)
[2019-07-04] MEDS: -POST HEMODIALYSIS NOTE- MISC SCH (08:17)
[2019-07-04] MEDS: ASPIRIN 81 MG EC TABLET PO SCH (08:17)
[2019-07-04] MEDS: ACETAMINOPHEN 325 MG TABLET PO PRN (08:23)
[2019-07-04] MEDS ORDERED: MECL12.585 PO (10:47)
[2019-07-04] MEDS ORDERED: OSEL30CA PO (10:47)
[2019-07-04] MEDS ORDERED: AMOX1TAB15 PO (10:47)
[2019-07-04 11:00] VITALS: BP 121/75
[2019-07-04] MEDS ORDERED: HEPARIN SODIUM,PORCINE 1,000 UNITS/ML VIAL IVP ONE (14:37)
[2019-07-04 16:38] VITALS: BP 97/58
== END 2019-07-04 18:45 | disposition home health service (06) | DRG 871 ==
LOC: EMS 19:10 → ICU 06-30 18:13 → 5S 07-01 19:50
PROVIDERS: ADMIT Internal Medicine; ATTEND Internal Medicine
DX: A41.9 Sepsis, unspecified organism (principal); N18.6 End stage renal disease; E43 Unspecified severe protein-calorie malnutrition; N39.0 Urinary tract infection, site not specified; E87.1 Hypo-osmolality and hyponatremia; I13.2 Hypertensive heart and chronic kidney disease with heart failure and with stage 5 chronic kidney disease, or end stage renal disease; J10.1 Influenza due to other identified influenza virus with other respiratory manifestations; D64.9 Anemia, unspecified; I95.9 Hypotension, unspecified; I25.10 Atherosclerotic heart disease of native coronary artery without angina pectoris; I50.9 Heart failure, unspecified; E78.5 Hyperlipidemia, unspecified; K21.9 Gastro-esophageal reflux disease without esophagitis; E11.22 Type 2 diabetes mellitus with diabetic chronic kidney disease; I25.5 Ischemic cardiomyopathy; M19.90 Unspecified osteoarthritis, unspecified site; E78.00 Pure hypercholesterolemia, unspecified; F17.210 Nicotine dependence, cigarettes, uncomplicated; D63.1 Anemia in chronic kidney disease; K43.9 Ventral hernia without obstruction or gangrene; Z82.49 Family history of ischemic heart disease and other diseases of the circulatory system; Z99.2 Dependence on renal dialysis; Z86.73 Personal history of transient ischemic attack (TIA), and cerebral infarction without residual deficits; Z68.26 Body mass index [BMI] 26.0-26.9, adult; Z95.810 Presence of automatic (implantable) cardiac defibrillator
CPT/HCPCS: 70450; 82024; 82533; 83605; 83735; 84100; 84145; 84439; 84443; 87040; 87081; 87086; 87340; 87804; 93005; 93306; 94640; 97162; 97530; 99291; G0378; J0690; J0696; J0834; J0885; J1644; J2185; J3370; J3490; J7030; J7050; J7060; P9046